=== PATIENT | male | born 1980 | race Caucasian/White ===

== ENCOUNTER 2021-09-19 12:08 | Emergency (ER) | payer OTHER, SELFPAY ==
[2021-09-19 12:16] VITALS: BP 143/89; PULSE 103; RESP 20; TEMP 36.7; O2SAT 97
--- NOTE | 2021-09-19 12:29 | ED.EAR ---
HPI - Ear Problem General Chief complaint: Ear Stated complaint: Ear Pain Time Seen by Provider: 09/19/21 12:24 Source: patient and RN notes reviewed Mode of arrival: ambulatory Limitations: no limitations History of Present Illness HPI Narrative: 41-year-old male presents with concern for left ear pain. He reports pain and pressure early in the week which improved Tuesday, yesterday got worse again. Reports having drainage from the ear earlier this month. He denies nasal congestion, rhinorrhea, sore throat, headache, fever, bodies, chills, sweats, cough. He reports history of ear infection of the ruptured eardrum in that ear in the past. MD Complaint: ear pain Related Data Home Medications Medication Instructions Recorded Confirmed loratadine [Claritin] 10 mg PO DAILY 09/19/21 09/19/21 Allergies Allergy/AdvReac Type Severity Reaction Status Date / Time No Known Allergies Allergy Unknown Verified 09/19/21 12:26 Review of Systems Review of Systems: CONSTITUTIONAL: Denies malaise, chills, sweats, or fever. EYES: Denies visual changes, redness, or discharge. ENT: Denies rhinorrhea, congestion, sinus pain, and sore throat. Reports left ear pain and pressure CARDIOVASCULAR: Denies chest pain, palpitations, or edema. RESPIRATORY: Denies cough. Denies dyspnea. GASTROINTESTINAL: Denies abdominal pain, nausea, vomiting, diarrhea SKIN: Denies rash or itching. MUSCULOSKELETAL: Denies myalgia. NEUROLOGIC: Denies headache. All systems reviewed & are unremarkable except as noted in HPI and below PMFSH Comments At time of signature, agree with nursing past medical, surgical, social and family history. There is no relevant family history pertinent to the presenting complaint Exam Narrative: GENERAL: Well-appearing, well-nourished, and in no acute distress. HEAD: Normocephalic EYES: PERRLA, conjunctivae clear ENT: Nares clear. Mucous membranes moist. Right TM pearly christiansen with dull light reflex left TM erythematous and bulging; no tragal tenderness. Oropharynx not erythematous without lesions. Tonsils not enlarged and without exudate, no drooling, no hoarseness, no trismus, uvula midline. NECK: Supple. No lymphadenopathy CHEST: No respiratory distress, speaks in full sentences. HEART: Regular rate and rhythm. No murmur heard. SKIN: Warm, dry, no rash. NEURO: Alert and oriented x3. PSYCH: Normal mood and affect Course Course Emergency Course: Patient is aware of diagnosis, understands and agrees to treatment plan. Anticipatory guidance given. Patient agrees to follow-up as directed and is aware of reasons to seek care at the emergency department. Portions of this record may have been created with voice recognition software Level of Care: Express Care Visit Vital Signs Vital signs: Vital Signs Temperature 98.0 F 09/19/21 12:16 Pulse Rate 103 H 09/19/21 12:16 Respiratory Rate 20 09/19/21 12:16 Blood Pressure 143/89 H 09/19/21 12:16 Pulse Oximetry 97 09/19/21 12:16 Temperature 98.0 F 09/19/21 12:16 Pulse Rate 103 H 09/19/21 12:16 Respiratory Rate 20 09/19/21 12:16 Blood Pressure 143/89 H 09/19/21 12:16 Pulse Oximetry 97 09/19/21 12:16 Reviewed. Medical Decision Making MDM Narrative Medical decision making narrative: Differential diagnosis considered: Harden virus, strep pharyngitis, allergic rhinitis, upper respiratory tract infection, sinusitis, rhinosinusitis, nasopharyngitis. viral pharyngitis, otitis media, otitis externa, otitis effusion, cerumen impaction, foreign body. Exam findings show no acute concerns or changes; patient is non-toxic appearing and is in no distress. Patient is appropriate for outpatient treatment and follow-up. Vital Signs Vital Signs: Vital Signs Temperature 98.0 F 09/19/21 12:16 Pulse Rate 103 H 09/19/21 12:16 Respiratory Rate 09/19/21 12:16 Blood Pressure 143/89 H 09/19/21 12:16 Pulse Oximetry 97 09/19/21 12:16 Temperature 98.0 F
== END 2021-09-19 12:36 | disposition home or self-care (01) ==
PROVIDERS: Emergency Provider Nurse Practitioner
DX: H66.002 Acute suppurative otitis media without spontaneous rupture of ear drum, left ear (principal)
CPT/HCPCS: 99203; G0463

== ENCOUNTER 2021-10-03 08:42 | Emergency (ER) | payer OTHER, SELFPAY ==
[2021-10-03 08:46] VITALS: BP 155/87; PULSE 86; RESP 20; TEMP 36.8; O2SAT 97
--- NOTE | 2021-10-03 08:59 | ED.EAR ---
HPI - Ear Problem General Stated complaint: Ear Pain Time Seen by Provider: 10/03/21 09:00 Source: patient History of Present Illness HPI Narrative: PATIENT PRESENTS WITH CONTINUED EAR PAIN. PATIENT WAS HERE IN [facility] 3 WEEKS AGO AND DIAGNOSED WITH LEFT EAR INFECTION. PATIENT STATES HE CONTINUES TO HAVE EAR PAIN. Patient states he has occasional drainage from the ear. No hearing loss no dizziness. Patient states he took his medication as prescribed. Patient states he has a history of left ear infections and problems with his left ear pain MD Complaint: ear pain and ear discharge Related Data Home Medications Medication Instructions Recorded Confirmed loratadine [Claritin] 10 mg PO DAILY 09/19/21 09/19/21 Allergies Allergy/AdvReac Type Severity Reaction Status Date / Time No Known Allergies Allergy Unknown Verified 09/19/21 12:26 Review of Systems Review of Systems: CONSTITUTIONAL: Denies fever, chills, or sweats. EYES: Denies visual changes, redness, or discharge. ENT: Denies rhinorrhea, congestion, sore throat, or otalgia. CARDIOVASCULAR: Denies chest pain, palpitations, or edema. RESPIRATORY: Denies cough or dyspnea. GASTROINTESTINAL: Denies abdominal pain, nausea, vomiting, or diarrhea. GENITOURINARY: Denies dysuria or hematuria. SKIN: Denies rash or itching. MUSCULOSKELETAL: Denies back pain, joint pain, or myalgia. NEUROLOGIC: Denies headache, numbness, or weakness. PSYCHIATRIC: Denies anxiety or depression. PMFSH Comments At time of signature, agree with nursing past medical, surgical, social and family history. There is no relevant family history pertinent to the presenting complaint Exam Narrative: GENERAL: Well-appearing, well-nourished, and in no acute distress. HEAD: Normocephalic, atraumatic. EYES: PERRLA and EOMI. ENT: Nares clear, no rhinorrhea or epistaxis. Mucous membranes moist. Right TM intact with good light reflex. Left TM opaque moderate erythremia to canal earlobe tender with movement NECK: Supple. CHEST: Clear to auscultation. No respiratory distress. HEART: Regular rate and rhythm. No murmur heard. Normal peripheral pulses. ABDOMEN: Soft, nontender, nondistended, normal active bowel sounds. EXTREMITIES: Normal range of motion. No edema. SKIN: Warm, dry, no rash. NEURO: No focal deficits. Alert and oriented x3. [place]hton Coma Scale Eye Opening: Spontaneous 4 Priscila Coma Scale Motor: Obeys Commands 6 [place] Coma Scale Verbal: Oriented 5 [place] Coma Scale Total 15 Course Course Level of Care: Express Care Visit Vital Signs Vital signs: Vital Signs Temperature 36.8 C 10/03/21 08:46 Pulse Rate 86 10/03/21 08:46 Respiratory Rate 20 10/03/21 08:46 Blood Pressure 155/87 H 10/03/21 08:46 Pulse Oximetry 97 10/03/21 08:46 Temperature 36.8 C 10/03/21 08:46 Pulse Rate 86 10/03/21 08:46 Respiratory Rate 20 10/03/21 08:46 Blood Pressure 155/87 H 10/03/21 08:46 Pulse Oximetry 97 10/03/21 08:46 Addressed elevated BP today. Today's blood pressure higher than recommended range. Discussed importance of follow -up with PCP and possible terminal clerk effects/cardiovascular events related to HTN. Currently patient denies headache, dizziness, vision changes, CP or shortness of breath. Critical dx considered and discussed with pt. Educated patient on red flag s/s and to go to ED if s/s occur. Discussed with pt when to return to Express Care or primary care provider. Pt gave verbal understanding, all questions were answered, and pt was agreeable to plan Discussed with patient if no improvement in this course of treatment must follow-up with primary care provider and have referral back to ENT as discussed. Patient agreeable with plan of care. Discussed red flags and when to go to ER. Medical Decision Making MDM Narrative Medical decision making narrative: We will place patient on Ciprodex eardrops and change to cefdinir antibiotic. Discussed with patient may have t
== END 2021-10-03 09:10 | disposition home or self-care (01) ==
PROVIDERS: Emergency Provider Nurse Practitioner Family; PCP Family Medicine
DX: H60.92 Unspecified otitis externa, left ear (principal); H66.92 Otitis media, unspecified, left ear
CPT/HCPCS: 99213; G0463